=== PATIENT | female | born 1995 | race Caucasian/White ===

== ENCOUNTER 2017-03-12 15:17 | Observation (INO) | payer MEDICAID ==
[~2017-03-12] VITALS: Ht 160 cm; Wt 54.0 kg
[2017-03-12 16:07] LABS: BLOOD UREA NITROGEN 22 mg/dL (7-18)
[2017-03-12] MEDS ORDERED: ZIPRASIDONE 20 MG INJ IM ONE ×2 (16:51→17:00)
[2017-03-12 17:03] LABS: ACETAMINOPHEN < 2 mcg/mL (10-30)
[2017-03-12] MEDS ORDERED: OLAN10TA9 PO (17:20)
[2017-03-12] MEDS ORDERED: POTASSIUM CHLORIDE 10% 40 MEQ/30 ML UDC PO ONE (17:30)
[2017-03-12 20:42] LABS: DAU SCREEN DISCLAIMER
[2017-03-12] MEDS ORDERED: OLANZAPINE 10 MG TABLET PO SCH (21:00)
[2017-03-12] MEDS ORDERED: OLANZAPINE 5 MG TABLET ONE (21:11)
[2017-03-12] MEDS: DIPHENHYDRAMINE 50 MG CAPSULE PO PRN (21:14)
[2017-03-13] MEDS: ZIPRASIDONE 20 MG INJ IM PRN (07:22)
[2017-03-13 07:23] LABS: BLOOD UREA NITROGEN 18 mg/dL (7-18)
[2017-03-13] MEDS: DIPHENHYDRAMINE 50 MG CAPSULE PO PRN (07:45)
[2017-03-13 08:00] VITALS: BP 118/72
[2017-03-13] MEDS: LORazepam 1MG TABLET PO PRN ×2 (09:30→19:26)
[2017-03-13] MEDS ORDERED: OLANZAPINE 10 MG TABLET PO ONE (10:30)
[2017-03-13] MEDS ORDERED: OLANZAPINE 5 MG TABLET ONE (10:56)
[2017-03-13] MEDS ORDERED: OLANZAPINE 2.5 MG TABLET ONE ×2 (10:58)
[2017-03-13 19:49] VITALS: BP 124/81
[2017-03-13] MEDS: OLANZAPINE 10 MG TABLET PO SCH (20:05)
[2017-03-14] VITALS (8 sets, daily range): BP systolic 96–131; BP diastolic 63–91
[2017-03-14] MEDS: OLANZAPINE 10 MG TABLET PO SCH ×2 (08:22→20:11)
[2017-03-14] MEDS: LORazepam 1MG TABLET PO PRN (08:22)
[2017-03-14] MEDS: ZIPRASIDONE 20 MG INJ IM PRN ×2 (10:00→22:00)
[2017-03-14] MEDS: LORazepam 2 MG/ML, 1ML IM PRN (13:00)
[2017-03-15] MEDS: OLANZAPINE 10 MG TABLET PO SCH ×3 (07:43→19:41)
[2017-03-15 08:25] VITALS: BP 123/83
[2017-03-15] MEDS: ZIPRASIDONE 20 MG INJ IM PRN ×3 (09:30→20:20)
[2017-03-15] MEDS ORDERED: ACETAMINOPHEN 325 MG TABLET PO PRN (11:00)
[2017-03-15] MEDS: LORazepam 2 MG/ML, 1ML IM PRN ×2 (14:19→23:10)
[2017-03-15 19:43] VITALS: BP 106/70
== END 2017-03-16 01:45 ==
LOC: ED 17:31 → EDIP 17:45 → INTOOBSV 17:45 → UNDOADMOB 17:45 → EDIP 18:58 → 3E 20:51
PROVIDERS: ADMIT Internal Medicine; ATTEND Internal Medicine
DX: F25.0 Schizoaffective disorder, bipolar type (principal); D72.829 Elevated white blood cell count, unspecified; E87.6 Hypokalemia; F15.10 Other stimulant abuse, uncomplicated; F17.200 Nicotine dependence, unspecified, uncomplicated; G80.9 Cerebral palsy, unspecified
CPT/HCPCS: 36415; 73130; 80048; 80307; 80329; 82040; 84439; 84443; 84703; 85025; 96372; 99285; G0378; J2060; J3486; G0480

== ENCOUNTER 2017-04-15 15:15 | Inpatient (IN) | payer MEDICAID ==
[~2017-04-15] VITALS: Ht 161.3 cm; Wt 59.9 kg
[~2017-04-15 15:15] MED LIST: OLAN10TA9 PO
[2017-04-15] MEDS ORDERED: SODIUM CHLORIDE 0.9% 1,000 ML IV ONE (15:25)
[2017-04-15] MEDS ORDERED: SODIUM CHLORIDE FLUSH 10ML SYR IVF ONE (15:30)
[2017-04-15 16:21] LABS: ACETAMINOPHEN < 2 mcg/mL (10-30)
[2017-04-15] MEDS ORDERED: DIPH25CA61 PO (16:32)
[2017-04-15] MEDS ORDERED: POTA10TA31 PO (16:32)
[2017-04-15] MEDS ORDERED: TRAZ100T15 PO (16:32)
[2017-04-15] MEDS ORDERED: LACTULOSE 20 GM/30 ML UDC PO STA (16:58)
[2017-04-15 17:06] LABS: DAU SCREEN DISCLAIMER
[2017-04-15] MEDS ORDERED: SODIUM CHLORIDE 0.9% 1,000 ML IV SCH (17:40)
[2017-04-15] MEDS ORDERED: ONDANSETRON ODT 4 MG PO PRN (18:00)
[2017-04-15] MEDS ORDERED: LABETALOL 5MG/ML, 20ML IVPush PRN (18:00)
[2017-04-15] MEDS ORDERED: ONDANSETRON 2MG/ML, 2ML IVPush PRN (18:00)
[2017-04-15] MEDS ORDERED: DOCUSATE 100 MG CAPSULE PO PRN (18:00)
[2017-04-15] MEDS ORDERED: BISACODYL 10 MG SUPP PR PRN (18:00)
[2017-04-15] MEDS ORDERED: POLYETHYLENE GLYCOL 17 GM PACKET PO PRN (18:00)
[2017-04-15 18:15] LABS: ASPARTATE AMINO TRANSFERASE 20 U/L (15-37); BLOOD UREA NITROGEN 12 mg/dL (7-18)
[2017-04-15 19:50] VITALS: BP 119/85
[2017-04-15] MEDS: LACTULOSE 20 GM/30 ML UDC PO SCH (21:27)
[2017-04-15] MEDS: HEPARIN 5,000 UNITS/ML, 1ML SQ SCH (21:27)
[2017-04-16 03:40] VITALS: BP 104/69
[2017-04-16 05:09] LABS: ASPARTATE AMINO TRANSFERASE 10 U/L (15-37); BLOOD UREA NITROGEN 11 mg/dL (7-18)
[2017-04-16] MEDS: HEPARIN 5,000 UNITS/ML, 1ML SQ SCH ×3 (05:23→19:57)
[2017-04-16 06:57] VITALS: BP 112/74
[2017-04-16] MEDS: LACTULOSE 20 GM/30 ML UDC PO SCH (08:57)
[2017-04-16] MEDS: LACTULOSE 10 GM/15 ML UDC PO SCH ×6 (11:49→22:56)
[2017-04-16 15:05] VITALS: BP 126/91
[2017-04-16] MEDS ORDERED: SODIUM CHLORIDE 0.9% 1,000 ML IV SCH (17:40)
[2017-04-16 19:21] VITALS: BP 136/93
[2017-04-16] MEDS: LITHIUM CARBONATE 300 MG CAPSULE PO SCH (19:57)
[2017-04-16] MEDS: ZIPRASIDONE 40MG CAPSULE PO SCH (19:57)
[2017-04-16] MEDS: LORazepam 1MG TABLET PO PRN (20:45)
[2017-04-16] MEDS: ACETAMINOPHEN 325 MG TABLET PO PRN (21:58)
[2017-04-17] MEDS: SODIUM CHLORIDE 0.9% 1,000 ML IV SCH ×3 (00:55→21:15)
[2017-04-17] MEDS: LACTULOSE 10 GM/15 ML UDC PO SCH (00:56)
[2017-04-17 01:54] VITALS: BP 129/87
[2017-04-17] MEDS: HEPARIN 5,000 UNITS/ML, 1ML SQ SCH ×3 (05:01→20:04)
[2017-04-17 09:00] VITALS: BP 127/85
[2017-04-17] MEDS: ZIPRASIDONE 40MG CAPSULE PO SCH ×2 (09:09→17:46)
[2017-04-17] MEDS: LITHIUM CARBONATE 300 MG CAPSULE PO SCH ×3 (09:09→20:04)
[2017-04-17 09:27] LABS: ASPARTATE AMINO TRANSFERASE 18 U/L (15-37); BLOOD UREA NITROGEN 9 mg/dL (7-18)
[2017-04-17 14:57] VITALS: BP 120/77
[2017-04-17 19:00] VITALS: BP 128/86
[2017-04-17] MEDS: ACETAMINOPHEN 325 MG TABLET PO PRN (20:04)
[2017-04-17] MEDS: LORazepam 1MG TABLET PO PRN (20:04)
[2017-04-17] MEDS ORDERED: TRAZODONE 50MG TABLET PO SCH (21:00)
[2017-04-18 01:24] VITALS: BP 121/69
[2017-04-18] MEDS: HEPARIN 5,000 UNITS/ML, 1ML SQ SCH ×2 (05:13→13:00)
[2017-04-18 07:31] VITALS: BP 102/68
[2017-04-18] MEDS: SODIUM CHLORIDE 0.9% 1,000 ML IV SCH ×2 (07:54→15:46)
[2017-04-18] MEDS: ZIPRASIDONE 40MG CAPSULE PO SCH ×2 (08:00→15:46)
[2017-04-18] MEDS: LITHIUM CARBONATE 300 MG CAPSULE PO SCH ×2 (08:00→15:46)
[2017-04-18] MEDS: ACETAMINOPHEN 325 MG TABLET PO PRN (08:52)
[2017-04-18 12:41] VITALS: BP 132/84
== END 2017-04-18 17:00 | DRG 642 ==
LOC: ED 17:01 → EDIP 17:02 → ED 17:12 → 3NW 18:38 → 3E 04-18 12:39
PROVIDERS: ADMIT Internal Medicine; ATTEND Internal Medicine
DX: E72.20 Disorder of urea cycle metabolism, unspecified (principal); G93.40 Encephalopathy, unspecified; G80.2 Spastic hemiplegic cerebral palsy; F25.0 Schizoaffective disorder, bipolar type; F17.210 Nicotine dependence, cigarettes, uncomplicated; F15.90 Other stimulant use, unspecified, uncomplicated
CPT/HCPCS: 36415; 70450; 76700; 80053; 80164; 80178; 80307; 80329; 81001; 82140; 83735; 84100; 84703; 85025; 93005; 99285; J1644; G0480; J7030

== ENCOUNTER 2017-04-22 08:28 | Emergency (ER) | payer MEDICAID ==
[~2017-04-22] VITALS: Ht 157.5 cm; Wt 49.8 kg
[~2017-04-22 08:28] MED LIST changes: +DIPH25CA61 PO; +POTA10TA31 PO; +TRAZ100T15 PO
[2017-04-22] MEDS ORDERED: LIDOCAINE 1%, 20ML SQ ONE (08:30)
[2017-04-22] MEDS ORDERED: LIDOCAINE 1%, 20ML ONE ×2 (08:35→08:42)
[2017-04-22 11:58] VITALS: BP 111/72
[2017-04-22] MEDS ORDERED: ZIPRASIDONE 20MG CAPSULE ONE (12:36)
[2017-04-22] MEDS ORDERED: ZIPRASIDONE 20MG CAPSULE PO SCH (13:00)
[2017-04-23] MEDS ORDERED: LITHIUM CARBONATE 300 MG CAPSULE PO SCH (09:00)
== END 2017-04-22 15:44 ==
LOC: ED 15:30
DX: S71.012A Laceration without foreign body, left hip, initial encounter (principal); W18.2XXA Fall in (into) shower or empty bathtub, initial encounter; Y93.E1 Activity, personal bathing and showering; Y92.89 Other specified places as the place of occurrence of the external cause; Y99.8 Other external cause status
CPT/HCPCS: 12032; 36415; 82140

== ENCOUNTER 2017-05-19 16:46 | Emergency (ER) | payer MEDICAID ==
[~2017-05-19] VITALS: Ht 157.5 cm; Wt 53.8 kg
[2017-05-19 16:48] VITALS: BP 132/92
== END 2017-05-19 18:27 | disposition home or self-care (01) ==
LOC: ED 17:11
DX: S60.011A Contusion of right thumb without damage to nail, initial encounter (principal); W18.30XA Fall on same level, unspecified, initial encounter; Y93.89 Activity, other specified; Y92.89 Other specified places as the place of occurrence of the external cause; Y99.8 Other external cause status
CPT/HCPCS: 99284

== ENCOUNTER 2017-05-23 09:57 | Observation (INO) | payer MEDICAID ==
[~2017-05-23] VITALS: Ht 157.5 cm; Wt 57.0 kg
[2017-05-23] MEDS ORDERED: ZIPR20CA2 PO (10:10)
[2017-05-23] MEDS ORDERED: LITH150C PO (10:10)
[2017-05-23] MEDS ORDERED: HALOPERIDOL 5 MG/ML ONE (10:39)
[2017-05-23 10:54] LABS: DAU SCREEN DISCLAIMER
[2017-05-23] MEDS ORDERED: HALOPERIDOL 5 MG/ML IM ONE (11:00)
[2017-05-23 11:06] LABS: HEMOGLOBIN 13.1 g/dL (11.7-16.4); WHITE BLOOD COUNT 8.3 x10^3/uL (3.4-10)
[2017-05-23 11:26] LABS: ASPARTATE AMINO TRANSFERASE 26 U/L (15-37); BLOOD UREA NITROGEN 14 mg/dL (7-18)
[2017-05-23 11:28] LABS: ACETAMINOPHEN < 2 mcg/mL (10-30)
[2017-05-23] MEDS ORDERED: ZIPRASIDONE 20MG CAPSULE ONE (21:26)
[2017-05-23] MEDS ORDERED: DOCUSATE 100 MG CAPSULE PO PRN (21:30)
[2017-05-23] MEDS ORDERED: ONDANSETRON ODT 4 MG PO PRN (21:30)
[2017-05-23] MEDS: ZIPRASIDONE 20MG CAPSULE PO SCH (21:45)
[2017-05-23] MEDS: TRAZODONE 100MG TABLET PO SCH (21:45)
[2017-05-23 21:55] VITALS: BP 108/72
[2017-05-24 07:16] VITALS: BP 99/66
[2017-05-24] MEDS: ZIPRASIDONE 20MG CAPSULE PO SCH ×2 (08:09→21:15)
[2017-05-24] MEDS: ACETAMINOPHEN 325 MG TABLET PO PRN (10:43)
[2017-05-24] MEDS: ZIPRASIDONE 20MG CAPSULE PO PRN ×2 (12:11→16:06)
[2017-05-24] MEDS ORDERED: POTASSIUM CHLORIDE 20 MEQ TAB.ER.PRT PO ONE (17:00)
[2017-05-24 21:06] VITALS: BP 104/71
[2017-05-24] MEDS: TRAZODONE 100MG TABLET PO SCH (21:13)
[2017-05-24] MEDS: CARBAMAZEPINE 200 MG TABLET PO SCH (21:13)
[2017-05-25 05:56] LABS: BLOOD UREA NITROGEN 16 mg/dL (7-18)
[2017-05-25 08:00] VITALS: BP 118/81
[2017-05-25] MEDS ORDERED: ZIPRASIDONE 40MG CAPSULE ONE (08:20)
[2017-05-25] MEDS: CARBAMAZEPINE 200 MG TABLET PO SCH ×2 (08:30→22:20)
[2017-05-25] MEDS: ZIPRASIDONE 20MG CAPSULE PO SCH ×2 (08:32→22:20)
[2017-05-25] MEDS: ZIPRASIDONE 20 MG INJ IM PRN (18:40)
[2017-05-25 19:49] VITALS: BP 151/77
[2017-05-25] MEDS: TRAZODONE 100MG TABLET PO SCH (22:20)
[2017-05-26] MEDS: ZIPRASIDONE 20 MG INJ IM PRN (05:05)
[2017-05-26 07:50] VITALS: BP 109/75
[2017-05-26] MEDS: CARBAMAZEPINE 200 MG TABLET PO SCH ×2 (07:57→19:51)
[2017-05-26] MEDS: ZIPRASIDONE 20MG CAPSULE PO SCH ×2 (07:57→19:52)
[2017-05-26] MEDS ORDERED: BENZTROPINE 1 MG TABLET PO ONE (11:30)
[2017-05-26 19:25] VITALS: BP 102/69
[2017-05-26] MEDS: TRAZODONE 100MG TABLET PO SCH (19:51)
[2017-05-27 07:00] VITALS: BP 113/73
[2017-05-27] MEDS: CARBAMAZEPINE 200 MG TABLET PO SCH ×3 (07:14→20:10)
[2017-05-27] MEDS: ZIPRASIDONE 20MG CAPSULE PO SCH ×2 (07:14→20:09)
[2017-05-27 19:07] VITALS: BP 122/82
[2017-05-27] MEDS ORDERED: TRAZODONE 100MG TABLET PO PRN (19:30)
[2017-05-27] MEDS ORDERED: OLANZAPINE 10 MG TABLET PO PRN (19:30)
[2017-05-27] MEDS: ACETAMINOPHEN 325 MG TABLET PO PRN (21:16)
[2017-05-28] VITALS (10 sets, daily range): BP systolic 114–138; BP diastolic 62–88
[2017-05-28] MEDS ORDERED: DIPHENHYDRAMINE 50 MG CAPSULE PO STA (04:20)
[2017-05-28] MEDS ORDERED: LORazepam 1MG TABLET PO STA (04:20)
[2017-05-28] MEDS ORDERED: DIPHENHYDRAMINE 50 MG CAPSULE ONE (04:29)
[2017-05-28] MEDS ORDERED: LORazepam 1MG TABLET ONE (04:30)
[2017-05-28] MEDS ORDERED: ZIPRASIDONE 40MG CAPSULE ONE (08:19)
[2017-05-28] MEDS: CARBAMAZEPINE 200 MG TABLET PO SCH (08:25)
[2017-05-28] MEDS: ZIPRASIDONE 20MG CAPSULE PO SCH (08:26)
[2017-05-28] MEDS: ACETAMINOPHEN 325 MG TABLET PO PRN (09:55)
[2017-05-28] MEDS ORDERED: CARB200T4 PO (11:01)
[2017-05-28] MEDS ORDERED: CLON-365 PO (11:01)
[2017-05-28] MEDS ORDERED: ZIPR20CA2 PO (11:01)
[2017-05-28] MEDS ORDERED: DIPHENHYDRAMINE 50 MG CAPSULE PO SCH (21:00)
== END 2017-05-28 12:00 ==
LOC: ED 10:19 → EDIP 16:59 → 3E 21:59
PROVIDERS: ADMIT Internal Medicine; ATTEND Internal Medicine
DX: F19.959 Other psychoactive substance use, unspecified with psychoactive substance-induced psychotic disorder, unspecified (principal); F15.10 Other stimulant abuse, uncomplicated; E87.6 Hypokalemia; F25.0 Schizoaffective disorder, bipolar type; F41.1 Generalized anxiety disorder; G80.9 Cerebral palsy, unspecified; Z91.19 Patient's noncompliance with other medical treatment and regimen; Z91.14 Patient's other noncompliance with medication regimen; F22 Delusional disorders
CPT/HCPCS: 36415; 80048; 80053; 80307; 80329; 84703; 85025; 96372; 99285; G0378; J1630; J3486; Q0162; G0479; G0480

== ENCOUNTER 2018-01-24 13:14 | Observation (INO) | payer MEDICAID ==
[~2018-01-24] VITALS: Ht 167.6 cm; Wt 60.0 kg
[~2018-01-24 13:14] MED LIST changes: +CARB200T4 PO; +CLON-365 PO; +LITH150C PO; +ZIPR20CA2 PO
[2018-01-24] MEDS ORDERED: LORazepam 1MG TABLET ONE (13:23)
[2018-01-24] MEDS ORDERED: LORazepam 1MG TABLET PO ONE (13:30)
[2018-01-24 13:44] LABS: BASOPHILS # (AUTO) 0.04 x10^3/uL (0-0.1); BASOPHILS % (AUTO) 0 % (0-1); EOSINOPHILS # (AUTO) 0.02 x10^3/uL (0-0.4); EOSINOPHILS % (AUTO) 0 % (1-7); LYMPHOCYTES # (AUTO) 2.68 x10^3/uL (1-3.4); LYMPHOCYTES % (AUTO) 21 % (22-44); MD NO; MEAN CORPUSCULAR HEMOGLOBIN 30.9 pg (27.0-34.8); MEAN CORPUSCULAR HGB CONC 34.1 g/dL (32.4-35.8); MEAN CORPUSCULAR VOLUME 90.6 fL (80-100); MEAN PLATELET VOLUME 7.9 fL (7.4-10.4); MONOCYTES # (AUTO) 1.36 x10^3/uL (0.2-0.8); MONOCYTES % (AUTO) 11 % (2-9); NEUTROPHILS # (AUTO) 8.88 x10^3/uL (1.8-6.8); NEUTROPHILS % (AUTO) 68 % (42-75); PLATELET COUNT 355 x10^3/uL (130-400); RED BLOOD COUNT 4.48 x10^6/uL (3.82-5.3)
[2018-01-24 13:57] LABS: ALANINE AMINOTRANSFERASE 20 U/L (12-78); ALBUMIN 3.9 g/dL (3.4-5.0); ANION GAP 8 mmol/L (5-15); CALCIUM 8.7 mg/dL (8.5-10.1); CHLORIDE 106 mmol/L (98-107); CREATININE 0.86 mg/dL (0.55-1.02)
[2018-01-24 13:58] LABS: SALICYLATE LEVEL < 1.7 mg/dL (2.8-20.0)
[2018-01-24] MEDS ORDERED: PLEASE ENTER HEIGHT AND WEIGHT MC SCH (14:00)
[2018-01-24 14:01] LABS: ALKALINE PHOSPHATASE 85 U/L (45-117); BILIRUBIN,TOTAL 0.8 mg/dL (0.2-1.0); TOTAL PROTEIN 8.1 g/dL (6.4-8.2)
[2018-01-24 14:14] LABS: ACETAMINOPHEN < 2 mcg/mL (10-30)
[2018-01-24 19:49] LABS: AMPHETAMINE SCREEN, URINE Positive (Negative); BARBITURATE SCREEN, URINE Negative (Negative); BENZODIAZEPINE SCREEN, URINE Negative (Negative); CANNABINOID SCREEN, URINE Negative (Negative); COCAINE SCREEN, URINE Negative (Negative); METHADONE SCREEN, URINE Negative (Negative); OPIATE SCREEN, URINE Negative (Negative)
[2018-01-24] MEDS: OLANZAPINE 2.5 MG TABLET PO SCH (23:30)
[2018-01-24] MEDS ORDERED: DOCUSATE 100 MG CAPSULE PO PRN (23:30)
[2018-01-24] MEDS ORDERED: OLANZAPINE 5 MG TABLET PO PRN (23:30)
[2018-01-24] MEDS ORDERED: ONDANSETRON ODT 4 MG PO PRN (23:30)
[2018-01-24] MEDS ORDERED: LORazepam 2 MG/ML, 1ML IM PRN (23:30)
[2018-01-24 23:58] LABS: FREE T4 (FREE THYROXINE) 1.51 ng/dL (0.76-1.46); THYROID STIMULATING HORMONE 1.44 mIU/L (0.358-3.740)
[2018-01-25 00:18] VITALS: BP 99/62
[2018-01-25 08:00] VITALS: BP 118/70
[2018-01-25] MEDS: OLANZAPINE 2.5 MG TABLET PO SCH ×3 (11:01→22:00)
[2018-01-25 16:23] LABS: MICROSCOPIC NOT IND
[2018-01-25 16:28] LABS: CULTURE INDICATED? NO
[2018-01-25 22:06] VITALS: BP 91/58
[2018-01-26] MEDS: OLANZAPINE 2.5 MG TABLET PO SCH ×2 (09:00→22:12)
[2018-01-26 09:15] VITALS: BP 100/74
[2018-01-26 21:49] VITALS: BP 111/73
[2018-01-27] MEDS: OLANZAPINE 2.5 MG TABLET PO SCH ×2 (11:46→21:46)
[2018-01-27 16:49] VITALS: BP 116/68
[2018-01-27 21:42] VITALS: BP 112/74
[2018-01-28 07:57] VITALS: BP 114/82
[2018-01-28] MEDS: OLANZAPINE 2.5 MG TABLET PO SCH ×2 (09:41→20:26)
[2018-01-28] MEDS: KETOCONAZOLE CRM 2%, 15GM TP SCH ×2 (11:00→20:24)
[2018-01-28 20:00] VITALS: BP 123/88
[2018-01-29 07:30] VITALS: BP 114/68
[2018-01-29] MEDS: OLANZAPINE 2.5 MG TABLET PO SCH ×2 (08:08→20:10)
[2018-01-29] MEDS: KETOCONAZOLE CRM 2%, 15GM TP SCH ×2 (09:12→20:10)
[2018-01-29] MEDS ORDERED: VITS A & D OINT 5 GM PKT TP PRN (12:00)
[2018-01-29 19:23] VITALS: BP 132/88
[2018-01-29] MEDS: ACETAMINOPHEN 325 MG TABLET PO PRN (22:42)
[2018-01-30] MEDS: ACETAMINOPHEN 325 MG TABLET PO PRN ×3 (04:34→20:49)
[2018-01-30 08:00] VITALS: BP 122/85
[2018-01-30] MEDS: OLANZAPINE 2.5 MG TABLET PO SCH ×2 (08:07→20:49)
[2018-01-30] MEDS: KETOCONAZOLE CRM 2%, 15GM TP SCH ×2 (10:39→20:50)
[2018-01-30 20:07] VITALS: BP 133/60
[2018-01-31 08:00] VITALS: BP 110/68
[2018-01-31] MEDS: OLANZAPINE 2.5 MG TABLET PO SCH (08:26)
[2018-01-31] MEDS: KETOCONAZOLE CRM 2%, 15GM TP SCH (08:28)
[2018-01-31] MEDS: ACETAMINOPHEN 325 MG TABLET PO PRN (11:43)
== END 2018-01-31 13:45 ==
LOC: ED 15:00 → EDIP 18:58 → 3E 01-25 00:12
PROVIDERS: ADMIT Internal Medicine; ATTEND Hospitalist
DX: F29 Unspecified psychosis not due to a substance or known physiological condition (principal); F31.9 Bipolar disorder, unspecified; F15.10 Other stimulant abuse, uncomplicated; Z87.891 Personal history of nicotine dependence
CPT/HCPCS: 36415; 80053; 80307; 80329; 81003; 84439; 84443; 84703; 85025; 93005; 99285; G0378; G0480

== ENCOUNTER 2018-03-20 03:28 | Emergency (ER) | payer MEDICAID ==
[~2018-03-20] VITALS: Ht 157.5 cm; Wt 43.4 kg
[2018-03-20 05:47] VITALS: BP 109/62
== END 2018-03-20 05:49 | disposition home or self-care (01) ==
LOC: ED 04:17
DX: M79.672 Pain in left foot (principal); M79.671 Pain in right foot; F15.20 Other stimulant dependence, uncomplicated; F31.9 Bipolar disorder, unspecified; Z72.9 Problem related to lifestyle, unspecified
CPT/HCPCS: 99281

== ENCOUNTER 2018-03-24 15:17 | Observation (INO) | payer MEDICAID ==
[~2018-03-24] VITALS: Ht 157.5 cm; Wt 45.0 kg
[2018-03-24 16:00] LABS: BASOPHILS # (AUTO) 0.06 x10^3/uL (0-0.1); BASOPHILS % (AUTO) 1 % (0-1); EOSINOPHILS # (AUTO) 0.06 x10^3/uL (0-0.4); EOSINOPHILS % (AUTO) 1 % (1-7); LYMPHOCYTES # (AUTO) 2.18 x10^3/uL (1-3.4); LYMPHOCYTES % (AUTO) 19 % (22-44); MD NO; MEAN CORPUSCULAR HEMOGLOBIN 31.5 pg (27.0-34.8); MEAN CORPUSCULAR HGB CONC 33.3 g/dL (32.4-35.8); MEAN CORPUSCULAR VOLUME 94.6 fL (80-100); MEAN PLATELET VOLUME 7.6 fL (7.4-10.4); MONOCYTES # (AUTO) 0.84 x10^3/uL (0.2-0.8); MONOCYTES % (AUTO) 7 % (2-9); NEUTROPHILS # (AUTO) 8.45 x10^3/uL (1.8-6.8); NEUTROPHILS % (AUTO) 73 % (42-75); PLATELET COUNT 358 x10^3/uL (130-400); RED BLOOD COUNT 4.48 x10^6/uL (3.82-5.3); RED CELL DISTRIBUTION WIDTH 14.1 % (9.6-15.2)
[2018-03-24 16:10] LABS: ALBUMIN 3.8 g/dL (3.4-5.0); ANION GAP 7 mmol/L (5-15); CHLORIDE 105 mmol/L (98-107); CREATININE 0.67 mg/dL (0.55-1.02)
[2018-03-24 16:19] LABS: ACETAMINOPHEN < 2 mcg/mL (10-30); SALICYLATE LEVEL < 1.7 mg/dL (2.8-20.0)
[2018-03-24 18:07] LABS: MICROSCOPIC INDICATED
[2018-03-24 18:09] LABS: AMPHETAMINE SCREEN, URINE Positive (Negative); BARBITURATE SCREEN, URINE Negative (Negative); BENZODIAZEPINE SCREEN, URINE Negative (Negative); CANNABINOID SCREEN, URINE Negative (Negative); COCAINE SCREEN, URINE Negative (Negative); METHADONE SCREEN, URINE Negative (Negative); OPIATE SCREEN, URINE Negative (Negative)
[2018-03-24 18:14] LABS: CULTURE INDICATED? NO
[2018-03-24] MEDS ORDERED: LORazepam 1MG TABLET ONE (21:46)
[2018-03-24] MEDS ORDERED: LORazepam 1MG TABLET PO ONE (22:00)
[2018-03-25] MEDS ORDERED: LORazepam 2 MG/ML, 1ML ONE (00:19)
[2018-03-25] MEDS ORDERED: LORazepam 2 MG/ML, 1ML IM ONE (00:30)
[2018-03-25] MEDS ORDERED: DOCUSATE 100 MG CAPSULE PO PRN (04:00)
[2018-03-25] MEDS ORDERED: ZIPRASIDONE 20 MG INJ IM PRN (04:00)
[2018-03-25] MEDS ORDERED: LORazepam 2 MG/ML, 1ML IM PRN (04:00)
[2018-03-25] MEDS ORDERED: LORazepam 1MG TABLET PO PRN (04:00)
[2018-03-25] MEDS ORDERED: ZIPRASIDONE 20MG CAPSULE PO PRN (04:00)
[2018-03-25] MEDS ORDERED: ONDANSETRON ODT 4 MG PO PRN (04:00)
[2018-03-25 09:14] VITALS: BP 131/85
== END 2018-03-25 14:10 ==
LOC: ED 17:16 → INTOOBSV 03-25 03:40 → EDIP 03-25 03:40
PROVIDERS: ADMIT Internal Medicine; ATTEND Internal Medicine
DX: F23 Brief psychotic disorder (principal); F15.129 Other stimulant abuse with intoxication, unspecified; F17.200 Nicotine dependence, unspecified, uncomplicated; F25.9 Schizoaffective disorder, unspecified; F41.1 Generalized anxiety disorder; F31.9 Bipolar disorder, unspecified; Z79.899 Other long term (current) drug therapy
CPT/HCPCS: 36415; 80048; 80307; 80329; 81001; 82040; 84703; 85025; 96372; 99285; G0378; J2060; G0480

== ENCOUNTER 2018-10-30 12:50 | Emergency (ER) | payer MEDICAID ==
[~2018-10-30] VITALS: Ht 157.5 cm; Wt 45.1 kg
[~2018-10-30 12:50] MED LIST changes: -CLON-365 PO; +CLON1TAB11 PO; +TRAZ-137 PO; -TRAZ100T15 PO
[2018-10-30 12:58] VITALS: BP 106/74
== END 2018-10-30 15:57 | disposition home or self-care (01) ==
LOC: ED 15:46
DX: S62.647A Nondisplaced fracture of proximal phalanx of left little finger, initial encounter for closed fracture (principal); S20.211A Contusion of right front wall of thorax, initial encounter; F41.1 Generalized anxiety disorder; F32.9 Major depressive disorder, single episode, unspecified; F25.9 Schizoaffective disorder, unspecified; Z72.9 Problem related to lifestyle, unspecified; V89.2XXA Person injured in unspecified motor-vehicle accident, traffic, initial encounter; Y93.89 Activity, other specified; Y92.89 Other specified places as the place of occurrence of the external cause; Y99.8 Other external cause status
CPT/HCPCS: 29130; 71046; 99283

== ENCOUNTER 2019-08-01 09:54 | Emergency (ER) | payer MEDICAID ==
[~2019-08-01] VITALS: Ht 157.5 cm; Wt 42.9 kg
--- NOTE | 2019-08-01 10:09 | NUR ---
NO ANSWER FROM TRIAGE
[2019-08-01 10:19] VITALS: BP 130/85
--- NOTE | 2019-08-01 10:46 | NUR ---
PT STATES THAT SHE IS NOT TAKING HER MEDICATIONS. STATES THAT SHE RAN OUT, I ASKED IF SHE WOULD LIKE US TO GIVE HER ANY REFILLS FOR HER RX. PT DECLINED.
--- NOTE | 2019-08-01 12:27 | NUR ---
Patient/Caregiver given discharge instructions and they have confirmed that they understand the instructions. Patient ambulatory with steady gait.
== END 2019-08-01 12:28 | disposition home or self-care (01) ==
LOC: ED 11:38
DX: G89.11 Acute pain due to trauma (principal); M79.642 Pain in left hand; M25.532 Pain in left wrist; X58.XXXA Exposure to other specified factors, initial encounter; Y93.89 Activity, other specified; Y92.89 Other specified places as the place of occurrence of the external cause; Y99.8 Other external cause status
CPT/HCPCS: 99283

== ENCOUNTER 2019-10-25 01:57 | Emergency (ER) | payer MEDICAID ==
[~2019-10-25] VITALS: Ht 157.5 cm; Wt 45.4 kg
[~2019-10-25 01:57] MED LIST changes: -TRAZ-137 PO; +TRAZ-175 PO
[2019-10-25 01:59] VITALS: BP 124/62
[2019-10-25] MEDS ORDERED: CLOTRIMAZOLE CRM 1%, 15GM TP ONE (09:00)
== END 2019-10-25 03:01 | disposition home or self-care (01) ==
LOC: ED 02:50
DX: B35.3 Tinea pedis (principal); B07.0 Plantar wart; F17.200 Nicotine dependence, unspecified, uncomplicated
CPT/HCPCS: 99283

== ENCOUNTER 2019-11-18 18:58 | Emergency (ER) | payer MEDICAID ==
[2019-11-18 19:16] VITALS: BP 105/62
--- NOTE | 2019-11-18 19:25 | NUR ---
Pt belongings placed in 2 bags and put in patient belongings locker. Pt changed into gown, sitter in hallway.
--- NOTE | 2019-11-18 20:11 | NUR ---
Food provided to patient, in no acute distress at this time and is cooperative. Sitter in hallway.
[2019-11-18 20:52] LABS: BASOPHILS # (AUTO) 0.12 x10^3/uL (0-0.1); BASOPHILS % (AUTO) 1 % (0-1); EOSINOPHILS # (AUTO) 0.12 x10^3/uL (0-0.4); EOSINOPHILS % (AUTO) 1 % (1-7); LYMPHOCYTES # (AUTO) 1.86 x10^3/uL (1-3.4); LYMPHOCYTES % (AUTO) 22 % (22-44); MD NO; MEAN CORPUSCULAR HEMOGLOBIN 31.8 pg (27.0-34.8); MEAN CORPUSCULAR HGB CONC 33.6 g/dL (32.4-35.8); MEAN CORPUSCULAR VOLUME 94.6 fL (80-100); MEAN PLATELET VOLUME 7.3 fL (7.4-10.4); MONOCYTES # (AUTO) 0.79 x10^3/uL (0.2-0.8); MONOCYTES % (AUTO) 9 % (2-9); NEUTROPHILS % (AUTO) 66 % (42-75); PLATELET COUNT 378 x10^3/uL (130-400); RED BLOOD COUNT 3.53 x10^6/uL (3.82-5.3); RED CELL DISTRIBUTION WIDTH 13.6 % (9.6-15.2)
[2019-11-18 21:01] LABS: ALBUMIN 2.7 g/dL (3.4-5.0); ANION GAP 7 mmol/L (5-15); CALCIUM 8.3 mg/dL (8.5-10.1); CHLORIDE 111 mmol/L (98-107); CREATININE 0.64 mg/dL (0.55-1.02)
[2019-11-18 21:03] LABS: SALICYLATE LEVEL < 1.7 mg/dL (2.8-20.0)
--- NOTE | 2019-11-18 22:39 | NUR ---
Pt requeting antifungal cream for feet. MD aware, will continue to monitor
[2019-11-18 23:20] LABS: CULTURE INDICATED? YES; MICROSCOPIC INDICATED
[2019-11-18 23:25] LABS: AMPHETAMINE SCREEN, URINE Positive (Negative); BARBITURATE SCREEN, URINE Negative (Negative); BENZODIAZEPINE SCREEN, URINE Negative (Negative); CANNABINOID SCREEN, URINE Negative (Negative); COCAINE SCREEN, URINE Negative (Negative); METHADONE SCREEN, URINE Negative (Negative); OPIATE SCREEN, URINE Negative (Negative)
[2019-11-18] MEDS ORDERED: FOSFOMYCIN 3 GM PACKET PO STA (23:42)
--- NOTE | 2019-11-19 00:02 | NUR ---
pt admitted to inpt psych. Belongings taken upstairs, pts bike given to security.
== END 2019-11-19 00:04 | disposition home or self-care (01) ==
LOC: ED 20:00
DX: R45.851 Suicidal ideations (principal); F32.9 Major depressive disorder, single episode, unspecified; F15.151 Other stimulant abuse with stimulant-induced psychotic disorder with hallucinations
CPT/HCPCS: 36415; 80048; 80307; 81001; 82040; 84703; 85025; 87086; 87147; 99284

== ENCOUNTER 2019-12-04 14:52 | Emergency (ER) | payer MEDICAID ==
[~2019-12-04] VITALS: Ht 160 cm; Wt 50.0 kg
[~2019-12-04 14:52] MED LIST changes: +OLAN5TAB9 PO; +TRAZ50TA66 PO
[2019-12-04 14:58] VITALS: BP 118/50
--- NOTE | 2019-12-04 15:14 | NUR ---
GEE RN: PT AMBULATED TO THE ROOM W/ A STEADY GAIT.
[2019-12-04] MEDS ORDERED: OLANZAPINE 5 MG TABLET ONE (15:55)
[2019-12-04] MEDS ORDERED: TRAZODONE 50MG TABLET ONE (15:55)
[2019-12-04] MEDS ORDERED: OLANZAPINE 5 MG TABLET PO ONE (16:00)
[2019-12-04] MEDS ORDERED: TRAZODONE 50MG TABLET PO ONE (16:00)
--- NOTE | 2019-12-04 16:11 | NUR ---
URINE COLLECTED AND SENT TO LAB. PT RESTING ON [facility] W/ CALL LIGHT IN REACH.
[2019-12-04 16:21] LABS: CULTURE INDICATED? YES; MICROSCOPIC INDICATED
== END 2019-12-04 17:18 | disposition home or self-care (01) ==
LOC: ED 15:31
DX: F20.1 Disorganized schizophrenia (principal)
CPT/HCPCS: 81001; 87086; 99283

== ENCOUNTER 2019-12-31 20:24 | Emergency (ER) | payer MEDICAID ==
[~2019-12-31] VITALS: Ht 157.5 cm; Wt 45.1 kg
[2019-12-31 20:25] VITALS: BP 195/166
--- NOTE | 2019-12-31 20:37 | NUR ---
PROVIDED PT WITH GOWN AND BAGS FOR PERSONNAL BELONGINGS, PT WITH FLIGHT OF IDEAS, PT ALSO CLAPPING HER HANDS AT THIS RN, RAQUEL NAVARRETE AND JAREN, PROVIDED PT WITH URINE CUP FOR SAMPLE
--- NOTE | 2019-12-31 20:53 | NUR ---
URINE SAMPLE TAKEN TO LAB
--- NOTE | 2019-12-31 21:17 | NUR ---
ERP AT PT'S BEDSIDE FOR RECHECK.
--- NOTE | 2019-12-31 21:18 | NUR ---
PT REFUSING TO HAVE VS OR B/P RECHECKED
== END 2019-12-31 21:30 | disposition home or self-care (01) ==
LOC: ED 21:02
DX: F15.159 Other stimulant abuse with stimulant-induced psychotic disorder, unspecified (principal); F41.9 Anxiety disorder, unspecified; F43.10 Post-traumatic stress disorder, unspecified; F17.210 Nicotine dependence, cigarettes, uncomplicated
CPT/HCPCS: 99281